=== PATIENT | male | born 1995 | race Caucasian/White ===

== ENCOUNTER 2020-11-03 15:44 | Emergency (ER) | payer SELFPAY ==
[~2020-11-03] VITALS: Ht 170.2 cm; Wt 66.0 kg
[2020-11-03 16:09] VITALS: BP 118/81
== END 2020-11-03 21:07 | disposition left against medical advice (07) ==
LOC: ER 15:44
DX: Z53.21 Procedure and treatment not carried out due to patient leaving prior to being seen by health care provider (principal)

== ENCOUNTER 2020-11-12 19:52 | Emergency (ER) | payer SELFPAY ==
[~2020-11-12] VITALS: Ht 165.1 cm; Wt 73.0 kg
[2020-11-12 19:54] VITALS: BP 133/55
== END 2020-11-12 20:35 | disposition left against medical advice (07) ==
LOC: ER 19:52
DX: Z53.21 Procedure and treatment not carried out due to patient leaving prior to being seen by health care provider (principal)
CPT/HCPCS: 93005